=== PATIENT | male | born 1955 | race Caucasian/White ===

== ENCOUNTER 2022-06-13 15:04 | Emergency (ER) | payer MEDICARE ==
[2022-06-13] MEDS ORDERED: Morphine 2 MG/ML VIAL ONE (15:48)
[2022-06-13] MEDS ORDERED: Morphine 4 MG/ML VIAL ONE (15:48)
[2022-06-13] MEDS ORDERED: Diazepam 10 MG/2 ML SYRINGE ONE (15:49)
== END 2022-06-13 17:30 | disposition short-term general hospital (02) ==
LOC: BURERS 15:04
DX: M51.26 Other intervertebral disc displacement, lumbar region (principal); I10 Essential (primary) hypertension; E03.9 Hypothyroidism, unspecified; F17.210 Nicotine dependence, cigarettes, uncomplicated
CPT/HCPCS: 72131; 96374; 96375; J2270; J3360

== ENCOUNTER 2023-08-18 17:33 | Emergency (ER) | payer MEDICARE ==
[2023-08-18 18:01] LABS: #Basophils 0.1 thou/uL (0.0-0.2); #Eosinphils 0.2 thou/uL (0.0-0.7); #Lymphocytes 2.8 thou/uL (1.20-3.40); #Monocytes 0.5 thou/uL (0.11-0.59); #Neutrophils 3.6 thou/uL (1.40-6.50); %Basophils 1.8 % (0.0-1.0); %Eosinophils 3.2 % (0.0-10.0); %Lymphocytes 38.3 % (21.0-51.0); %Monocytes 7.3 % (0.0-10.0); %Neutrophils 49.5 % (42.0-75.0); Hematocrit 45.1 % (42.0-52.0); Hemoglobin 14.5 g/dL (14.0-18.0); Mean Corpuscular HGB CONC 32.2 g/dL (32.0-36.0); Mean Corpuscular Hemoglobin 31.1 pg (27.0-31.0); Mean Corpuscular Volume 96.7 fl (78.0-98.0); Mean Platelet Volume 6.9 fL (7.4-10.4); Platelet Count 327 10x3/uL (130-400); RBC Distribution Width 12.2 % (11.5-14.5); Red Blood Cell (RBC) Count 4.66 mill/uL (4.70-6.10); White Blood Cell (WBC) Count 7.3 10x3/uL (4.8-10.8)
[2023-08-18] MEDS ORDERED: Aspirin Chewable 81 MG TAB ONE (18:12)
[2023-08-18 18:20] LABS: Troponin I 0.012 ng/mL (< 0.028)
[2023-08-18 18:26] LABS: ALT (SGPT) 23 U/L (8-55); AST (SGOT) 18 U/L (5-34); Alkaline Phosphatase 66 U/L (40-110); Anion Gap 14 mmol/L (10-20); BUN (Urea Nitrogen) 20 mg/dL (8.4-25.7); Bilirubin, Total 0.3 mg/dL (0.2-1.2); Calc. Creatinine Clearance 0 mL/min (70-130); Calcium 8.7 mg/dL (7.8-10.44); Carbon Dioxide 20 mmol/L (23-31); Chloride 113 mmol/L (98-107); Estimated GFR 58; Globulin 2.6 g/dL (2.4-3.5); Glucose 108 mg/dL (80-115); Potassium 4.4 mmol/L (3.5-5.1); Protein, Total 6.6 g/dL (5.8-8.1); Sodium 143 mmol/L (136-145)
[2023-08-18] MEDS ORDERED: Nitroglycerin 0.4 MG TAB 1 EACH ONE (18:26)
[2023-08-18] MEDS ORDERED: Nitroglycerin 2% Ointment 1 INCH/1 GM Packet ONE (18:32)
[2023-08-18 22:17] LABS: Troponin I Less than 0.010 ng/mL (< 0.028)
== END 2023-08-18 23:45 | disposition short-term general hospital (02) ==
LOC: BURERS 17:33
DX: R07.9 Chest pain, unspecified (principal); I10 Essential (primary) hypertension; E78.5 Hyperlipidemia, unspecified; F17.210 Nicotine dependence, cigarettes, uncomplicated; Z79.899 Other long term (current) drug therapy
CPT/HCPCS: 71045; 80053; 83880; 84484; 85025; 93005